=== PATIENT | female | born 1955 | race Caucasian/White ===

== ENCOUNTER 2018-07-29 18:44 | Emergency (ER) | payer BC ==
--- NOTE | 2018-07-29 20:04 | EDM.PDOC ---
ED HPI GENERAL MEDICAL PROBLEM - General Chief Complaint: General Stated Complaint: EARS Time Seen by Provider: 07/29/18 19:26 Source of Information: Reports: Patient, RN, RN Notes Reviewed History Limitations: Reports: No Limitations - History of Present Illness INITIAL COMMENTS - FREE TEXT/NARRATIVE: Pt to Er with c/o nausea, dizziness, light headedness the past few days. She states today she had a muscle spasm in the low back which was severe. She states her blood sugars have been elevated, and BP has bee elevated today as well. Patient admits to being shaky, chills, nausea, vomiting, sharp pains in the head, short in duration. She denies fever, body aches, diarrhea, CP, SOB, cough. She states she is diabetic, and has recently had a cold and sinus infection. Onset: Gradual - Related Data Allergies Allergy/AdvReac Type Severity Reaction Status Date / Time No Known Allergies Allergy Verified 07/29/18 18:54 Home Meds: Home Meds Atenolol [Tenormin] 50 mg PO DAILY 07/29/18 [History] Exenatide Microspheres [Bydureon Pen] 2 mg SQ ASDIRECTED 07/29/18 [History] Insulin Degludec [Tresiba] 22 unit SQ DAILY 07/29/18 [History] Lisinopril 20 mg PO DAILY 07/29/18 [History] Omeprazole 20 mg PO DAILY 07/29/18 [History] atorvaSTATin [Lipitor] 20 mg PO DAILY 07/29/18 [History] hydroCHLOROthiazide [Hydrochlorothiazide] 25 mg PO DAILY 07/29/18 [History] metFORMIN HCl [Metformin HCl] 1,000 mg PO DAILY 07/29/18 [History] Past Medical History Cardiovascular History: Reports: Hypertension Endocrine/Metabolic History: Reports: Diabetes, Type II, Obesity/BMI 30+ - Infectious Disease History Infectious Disease History: Reports: Mumps - Past Surgical History Female Surgical History: Reports: Tubal Ligation Social & Family History - Tobacco Use Smoking Status *Q: Never Smoker Second Hand Smoke Exposure: No - Recreational Drug Use Recreational Drug Use: No ED ROS GENERAL - Review of Systems Review Of Systems: ROS reveals no pertinent complaints other than HPI. ED EXAM, GENERAL - Physical Exam Exam: See Below Exam Limited By: No Limitations General Appearance: Alert, WD/WN, No Apparent Distress Eye Exam: Bilateral Eye: EOMI, Normal Inspection Ears: Normal External Exam, Hearing Grossly Normal Ear Exam: Bilateral Ear: TM Dull Nose: Normal Inspection Throat/Mouth: Normal Inspection, Normal Voice, No Airway Compromise Head: Atraumatic, Normocephalic Neck: Normal Inspection, Supple, Non-Tender, Full Range of Motion Respiratory/Chest: No Respiratory Distress, Lungs Clear, Normal Breath Sounds, No Accessory Muscle Use, Chest Non-Tender Cardiovascular: Normal Peripheral Pulses, Regular Rate, Rhythm, No Edema, No Gallop, No JVD, No Murmur, No Rub Peripheral Pulses: 2+: Radial (L), Radial (R) GI/Abdominal: Normal Bowel Sounds, Soft, Non-Tender (Female) Exam: Deferred Rectal (Female) Exam: Deferred Back Exam: Normal Inspection, Full Range of Motion Extremities: Normal Inspection, Normal Range of Motion, Non-Tender, Normal Capillary Refill, No Pedal Edema Neurological: Alert, Oriented, CN II-XII Intact, Normal Cognition, Normal Gait, Normal Reflexes, No Motor/Sensory Deficits Psychiatric: Normal Affect, Normal Mood Skin Exam: Warm, Dry, Intact, Normal Color, No Rash Lymphatic: No Adenopathy EKG INTERPRETATION EKG Date: 07/29/18 Time: 19:56 Rhythm: NSR Rate (Beats/Min): 71 [place]: Normal P-Wave: Present QRS: Normal ST-T: Normal QT: Normal Comparison: NA - No Prior EKG Course - Vital Signs Last Recorded V/S: Last Vital Signs Temp 97.8 F 07/29/18 18:48 Pulse 81 07/29/18 18:48 Resp 18 07/29/18 18:48 BP 159/90 H 07/29/18 18:48 Pulse Ox 99 07/29/18 18:48 - Orders/Labs/Meds Orders: Active Orders 24 hr Category Date Time Status EKG Documentation Completion [RC] STAT Care 07/29/18 19:43 Active Labs: Laboratory Tests 07/29/18 07/29/18 07/29/18 Range/Units 19:52 19:52 20:43 WBC 10.6 H (5.0-10.0) 10^3/uL RBC 5.44 H (4.2-5.4) 10^6/uL Hgb 15.1 (12.0-16.0) g/dL Hct 42.9 (37.0-47.0) % MCV 78.9 L (80-100) fL MCH 27.8 (27.0-34.0) pg MCHC 35.2 H (33.0-35.0) g/dL Plt Count 229 (150-450) 10^3/uL Neut % (Auto) 52.2 (42.2-75.2) % Lymph % (Auto) 41.1 (20.5-50.1) % [place] % (Auto) 4.9 (2-8) % Eos % (Auto) 1.5 (1.0-3.0) % Baso % (Auto) 0.3 (0.0-1.0) % Sodium 135 (135-145) mmol/L Potassium 3.3 L (3.6-5.0) mmol/L Chloride 95 L (101-111) mmol/L Carbon Dioxide 26.0 (21.0-31.0) mmol/L Anion Gap 17.3 BUN 16 (7-18) mg/dL Creatinine 0.6 (0.6-1.3) mg/dL Est Cr Clr Drug Dosing 86.10 mL/min Estimated GFR (MDRD) > 60 BUN/Creatinine Ratio 26.66 Glucose 181 H (74-105) mg/dL Calcium 9.5 (8.4-10.2) mg/dl Total Bilirubin 0.9 (0.2-1.0) mg/dL AST 30 (10-42) IU/L ALT 27 (10-60) IU/L Alkaline Phosphatase 78 (42-121) IU/L Troponin I < 0.02 (0.00-0.02) ng/ml Total Protein 7.7 (6.7-8.2) g/dl Albumin 4.2 (3.2-5.5) g/dl Globulin 3.5 Albumin/Globulin Ratio 1.20 Urine Color Yellow (YELLOW) Urine Appearance Clear (CLEAR) Urine pH 5.0 (5.0-9.0) Ur Specific [place] <= 1.005 (1.005-1.030) Urine Protein Negative (NEGATIVE) Urine Glucose (UA) Negative (NEGATIVE) Urine Ketones Negative (NEGATIVE) Urine Occult Blood Negative (NEGATIVE) Urine Nitrite Negative (NEGATIVE) Urine Bilirubin Negative (NEGATIVE) Urine Urobilinogen 0.2 (0.2-1.0) mg/dL Ur Leukocyte Esterase Negative (NEGATIVE) Departure - Departure Time of Disposition: 21:11 Disposition: Home, Self-Care 01 Condition: Fair Clinical Impression: Dizziness, Nausea, Vertigo Sinusitis Qualifiers: Sinusitis location: unspecified location Chronicity: acute Recurrence: recurrent Qualified Code(s): J01.91 - Acute recurrent sinusitis, unspecified - Discharge Information *PRESCRIPTION DRUG MONITORING PROGRAM REVIEWED*: No *COPY OF PRESCRIPTION DRUG MONITORING REPORT IN PATIENT ALFRED: No Instructions: Sinus Rinse, [id number], Upper Respiratory Infection, Adult, [id number], Nausea, Adult, [id number], Dizziness, [id number] Forms: ED Department Discharge Additional Instructions: Follow up with your primary care facility RX: Meclizine Drink plenty of water Use Mucinex, Flonase - My Orders Last 24 Hours: My Active Orders 07/29/18 19:43 EKG Documentation Completion [RC] STAT - Assessment/Plan Last 24 Hours: My Active Orders 07/29/18 19:43 EKG Documentation Completion [RC] STAT
[2018-07-29 20:18] LABS: ANION GAP 17.3; CHLORIDE,CL 95 mmol/L (101-111); SODIUM,NA 135 mmol/L (135-145)
== END 2018-07-29 21:30 | disposition home or self-care (01) ==
LOC: DL.ED 18:44
DX: J01.91 Acute recurrent sinusitis, unspecified (principal); R42 Dizziness and giddiness; R11.0 Nausea; E11.9 Type 2 diabetes mellitus without complications; E66.9 Obesity, unspecified; I10 Essential (primary) hypertension; Z79.84 Long term (current) use of oral hypoglycemic drugs; Z79.899 Other long term (current) drug therapy
CPT/HCPCS: 36415; 80053; 81003; 84484; 85025; 93005; 99283